=== PATIENT | female | born 1945 | race Caucasian/White ===

== ENCOUNTER 2017-08-10 22:50 | Inpatient (IN) | payer MEDICARE ==
[~2017-08-10] VITALS: Ht 157 cm; Wt 85.8 kg
[~2017-08-10 22:50] MED LIST: ADVA500A INH; ADVAI500I PO; ALBU0.08 NEB; ALBU8I INH; ASPI-516 CHEW; ASPI325T PO; DUONI NEB; E-40CAP; FISH120014; GLUC500T4 PO; GLUCTAB6; HYDR-2768 PO; HYDR25TA5 PO; LOSA50TA PO; LOVA40TA PO; MAGN1TAB14; MAGN500T2 PO; METF500 PO; METF500T PO; MULTCAP2 PO; REME15TA PO; SPIRCAP INH; VENTAER INH; VITA-13 PO; VITATAB11; Vancomycin Consult Pharmacy 1 EA OTHER SCH
[2017-08-10 23:20] VITALS: O2SAT 92
[2017-08-11] VITALS (7 sets, daily range): BP systolic 92–148; BP diastolic 58–79; PULSE 76–93; RESP 18–20; TEMP 96.6–98; O2SAT 90–96
[2017-08-11] MEDS ORDERED: VANCOMYCIN 1,500 MG/NS 500 ML IV ONE ×2 (01:00)
[2017-08-11] MEDS ORDERED: RESP: ALBUTEROL 2.5 MG/IPRATROPIUM 0.5 MG NEB (PRN) NEB (04:15)
[2017-08-11] MEDS ORDERED: DEXTROSE 50% IN WATER 50 ML VIAL(D50) IV PUSH PRN (04:30)
[2017-08-11] MEDS ORDERED: GLUCAGON 1 MG/ML VIAL OTHER PRN (04:30)
[2017-08-11] MEDS ORDERED: METFORMIN HOLD POST IV CONTRAST SCH (04:50)
[2017-08-11] MEDS ORDERED: IOHEXOL 350 MG/ML 10 ML VIAL (for RAD DIAG) IVCONTRAST ONE (05:06)
[2017-08-11] MEDS ORDERED: ALBUTEROL SULFATE 90 MCG/ACT HFA 8 GM INHALER INH PRN (05:30)
--- NOTE | 2017-08-11 05:31 | RADRPT ---
EXAM DATE/TIME: 08/11/2017 04:45 [facility] COMPARISON: No previous studies available for comparison. INDICATIONS : Evaluate for embolism. Elevated d dimer. IV CONTRAST: 75 cc Omnipaque 350 (iohexol) IV RADIATION DOSE: 17.68 CTDIvol (mGy) MEDICAL HISTORY : Hernia, hiatal. Carcinoma, breast. Chronic obstructive pulmonary disease.Hypertension. Diabetic. SURGICAL HISTORY : Cholecystectomy. Mastectomy, bilateral. ENCOUNTER: Initial ACUITY: 1 day PAIN SCALE: 4/10 LOCATION: chest TECHNIQUE: Volumetric scanning of the chest was performed using a pulmonary embolism protocol MIP images were re constructed. Using automated exposure control and adjustment of the mA and/or kV according to patien t size, radiation dose was kept as low as reasonably achievable to obtain optimal diagnostic quality images. DICOM format image data is available electronically for review and comparison. Follow-up recommendations for detected pulmonary nodules are based at a minimum on nodule size and pa tient risk factors according to Fleischner Society Guidelines. FINDINGS: PULMONARY ARTERIES: No filling defects are seen in the pulmonary arteries through the segmental level. LUNGS: Airspace consolidation in the right lung base with associated volume loss. Mild air space consolidati on in the lingula and anterior right middle lobe. Patchy airspace consolidation in the apices bilater ally. PLEURAE: Trace left pleural effusion. Loculated right pleural effusion with indeterminate density. MEDIASTINUM: Heart is grossly unremarkable. There are multiple mediastinal nodes measuring up to 12 mm and slightl y prominent bilateral hilar nodes. Thoracic aorta is grossly unremarkable. MUSCULOSKELETAL: No abnormal lytic or blastic bony lesions. MISCELLANEOUS: The visualized upper abdominal organs demonstrate no acute abnormality. CONCLUSION: 1. No CT evidence for pulmonary artery embolism as questioned. 2. Trace left and small loculated complex right pleural effusion. Associated airspace disease and vol ume loss in the right lung base, presumably compressive atelectasis. 3. Patchy airspace disease in the anterior right middle lobe and lingula which may reflect post radia tion change. 4. Mild patchy biapical airspace consolidation, right greater than left, which may be infectious or i nflammatory in etiology. 5. Nonspecific mild mediastinal and hilar adenopathy. Michel Plata MD on August 11, 2017 at 5:22 Board Certified Radiologist. This report was verified electronically.
[2017-08-11] MEDS ORDERED: methylPREDNISolone SOD SUCC 40 MG/1 ML VIAL IV PUSH SCH (06:00)
[2017-08-11] MEDS: RESP: ALBUTEROL 2.5 MG/IPRATROPIUM 0.5 MG NEB (SCH) NEB ×3 (07:52→21:05)
[2017-08-11] MEDS: INSULIN ASPART SUPPLEMENTAL SCALE SQ SCH ×4 (08:00→20:32)
[2017-08-11 08:38] LABS: AUTOMATED NEUTROPHIL # 15.2 TH/MM3 (1.8-7.7); BASOPHIL % 0.1 % (0.0-2.0); HEMOGLOBIN 11.9 GM/DL (11.6-15.3); LYMPH % 6.4 % (9.0-44.0); LYMPHOCYTE # 1.1 TH/MM3 (1.0-4.8); MEAN CELL VOLUME 86.6 FL (80.0-100.0); MEAN CORPUSCULAR HEMOGLOBIN 28.7 PG (27.0-34.0); MEAN CORPUSCULAR HGB CONC 33.1 % (32.0-36.0); MEAN PLATELET VOLUME 7.3 FL (7.0-11.0); MONOCYTE # 0.2 TH/MM3 (0-0.9); NEUT % 92.5 % (16.0-70.0); PLATELET COUNT 455 TH/MM3 (150-450); RED BLOOD COUNT 4.16 MIL/MM3 (4.00-5.30); RED CELL DISTRIBUTION WIDTH 14.7 % (11.6-17.2); WHITE BLOOD COUNT 16.5 TH/MM3 (4.0-11.0)
[2017-08-11 08:52] LABS: CALCIUM 8.5 MG/DL (8.5-10.1)
[2017-08-11 08:53] LABS: BICARBONATE 28.7 MEQ/L (21.0-32.0)
[2017-08-11 08:56] LABS: CREATININE 0.36 MG/DL (0.50-1.00)
[2017-08-11] MEDS: BUDESONIDE-FORMOTEROL 80/4.5 MCG INHALER INH SCH ×2 (09:19→21:00)
[2017-08-11] MEDS: TIOTROPIUM BROMIDE 18 MCG INH INH SCH (09:19)
[2017-08-11] MEDS: PRAVASTATIN SOD 40 MG TAB PO SCH (09:22)
[2017-08-11] MEDS: MAGNESIUM OXIDE 400 MG TAB PO SCH (09:22)
--- NOTE | 2017-08-11 10:16 | HHI.HP ---
[facility]Staff Admission Diagnosis Diagnoses: Travel History International Travel<30 Days: No Contact w/Intl Traveler <30 Da: No Traveled to Known Affected Are: No History of Present Illness have been short of breath 3 weeks ago, had flu, and was on tamiflu 5 days and on levaquin and prednisone - 10 days started feeling better but by 4th day later, started having fever, lethargic, and went to pcp again about 6 days later, and PCP told her to come to hospital thus she went to [facility] on home oxygen 3L at night time also uses cpap at night sleep apnea had little bit of diarrhea- couple of days - but now resolved for 2 days now diarrhea smells like baby stool had a little bit of chest pain but mostly after coughing a lot, at the bilateral mastectomy site nebulizer treatments helped with this Review of Systems Except as stated in HPI: all other systems reviewed are Neg Past Family Social History Past Medical History htn dm copd on home oxygen sleep apnea on cpap asthma breast cancer- intraductal- bilateral mastectomy, last dose of chemo over a year ago, now on arimidex, last dose radiation more than a year ago Past Surgical History cholecystectomy mediport placement and removal breast biopsy bilateral mastectomy cervical cone biopsy left pinky finger sx Allergies: Coded Allergies: enalapril (Verified Allergy, Severe, Swelling, 08/10/17) thanh (Verified Allergy, Unknown, SWELLING, 08/10/17) oxycodone (Verified Adverse Reaction, Unknown, NIGHTMARES, 08/10/17) Family History bone cancer in mother, father, lung cancer on father side one aunt from lung cancer Social History smokes about a pack and a half to two packs a day still lives with her 25 yo grandson still drives independent with her ADLs no etoh abuse no drugs Physical Exam Vital Signs Vital Signs Date Time Temp Pulse Resp B/P (MAP) Pulse Ox O2 Delivery O2 Flow Rate FiO2 08/11/17 07:54 92 Nasal Cannula 5.00 08/11/17 07:50 96.6 87 20 148/79 (102) 92 08/11/17 00:00 97.8 92 18 92/75 (81) 91 08/10/17 23:38 Nasal Cannula 4.00 08/10/17 23:20 92 Nasal Cannula 4.00 Physical Exam GENERAL: This is a well-nourished, well-developed patient, in no apparent distress. sitting up in chair, pleasant, coughing quite a bit, on 5L NC SKIN: No rashes, ecchymoses or lesions. Cool and dry. HEAD: Atraumatic. Normocephalic. No temporal or scalp tenderness. EYES: No scleral icterus. No injection or drainage. ENT: Nose without bleeding, purulent drainage or septal hematoma. T. Airway patent. NECK: Trachea midline. No JVD or lymphadenopathy. Supple, nontender, no meningeal signs. CARDIOVASCULAR: Regular rate and rhythm without murmurs, gallops, or rubs. RESPIRATORY: bilateral mild expiratory wheezing with decreased entry at bases GASTROINTESTINAL: Abdomen soft, non-tender, nondistended. No No guarding. MUSCULOSKELETAL: Extremities without clubbing, cyanosis, or edema. . No calf tenderness. NEUROLOGICAL: Awake and alert. Motor and sensory grossly within normal limits.Normal speech. Laboratory Laboratory Tests Test 08/10/17 23:30 08/11/17 08:10 D-Dimer Quantitative (PE/DVT) 2.93 White Blood Count 16.5 Red Blood Count 4.16 Hemoglobin 11.9 Hematocrit 36.0 Mean Corpuscular Volume 86.6 Mean Corpuscular Hemoglobin 28.7 Mean Corpuscular Hemoglobin Concent 33.1 Red Cell Distribution Width 14.7 Platelet Count 455 Mean Platelet Volume 7.3 Neutrophils (%) (Auto) 92.5 Lymphocytes (%) (Auto) 6.4 Monocytes (%) (Auto) 1.0 Eosinophils (%) (Auto) 0.0 Basophils (%) (Auto) 0.1 Neutrophils # (Auto) 15.2 Lymphocytes # (Auto) 1.1 Monocytes # (Auto) 0.2 Eosinophils # (Auto) 0.0 Basophils # (Auto) 0.0 CBC Comment DIFF FINAL Differential Comment Blood Urea Nitrogen 13 Creatinine 0.36 Random Glucose 133 Calcium Level 8.5 Sodium Level 138 Potassium Level 4.4 Chloride Level 101 Carbon Dioxide Level 28.7 Anion Gap 8 Estimat Glomerular Filtration Rate 177 Result Diagram: 08/11/17 0810 08/11/17 0810 Imaging Last [address] Angiography 08/11/17 0000 Signed Impressions: Service Date/Time: Friday, August 11, 2017 04:45 - CONCLUSION: 1. No CT evidence for pulmonary artery embolism as questioned. 2. Trace left and small loculated complex right pleural effusion. Associated airspace disease and volume loss in the right lung base, presumably compressive atelectasis. 3. Patchy airspace disease in the anterior right middle lobe and lingula which may reflect post radiation change. 4. Mild patchy biapical airspace consolidation, right greater than left, which may be infectious or inflammatory in etiology. 5. Nonspecific mild mediastinal and hilar adenopathy. MD Tony Johnson VTE Risk Assessment Caprini VTE Risk Assessment: Mod/High Risk (score >= 2) Caprini Risk Assessment Model Point Value = 1 Point Value = 2 Point Value = 3 Point Value = 5 Age 41-60 Minor surgery BMI > 25 kg/m2 Swollen legs Varicose veins or History of unexplained or recurrent spontaneous Oral contraceptives or hormone replacement Sepsis (< 1 month) Serious lung disease, including pneumonia (< 1 month) Abnormal pulmonary function Acute myocardial infarction Congestive heart failure (< 1 month) History of inflammatory bowel disease Medical patient at bed rest Age 61-74 Arthroscopic surgery Major open surgery (> 45 min) Laparoscopic surgery (> 45 min) Malignancy Confined to bed (> 72 hours) Immobilizing plaster cast Central venous access Age >= 75 History of VTE Family history of VTE Factor V Leiden Prothrombin [id number] Lupus anticoagulant Anticardiolipin antibodies Elevated serum homocysteine Heparin-induced thrombocytopenia Other congenital or acquired thrombophilia Stroke (< 1 month) Elective arthroplasty Hip, pelvis, or leg fracture Acute spinal cord injury (< 1 month) Prophylaxis Regimen Total Risk Factor Score Risk Level Prophylaxis Regimen 0-1 Low Early ambulation 2 Moderate Order ONE of the following: *Sequential Compression Device (SCD) *Heparin 5000 units SQ BID 3-4 Higher Order ONE of the following medications: *Heparin 5000 units SQ TID *Enoxaparin/Lovenox 40 mg SQ daily (WT < 150 kg, CrCl > 30 mL/min) *Enoxaparin/Lovenox 30 mg SQ daily (WT < 150 kg, CrCl > 10-29 mL/min) *Enoxaparin/Lovenox 30 mg SQ BID (WT < 150 kg, CrCl > 30 mL/min) AND/OR *Sequential Compression Device (SCD) 5 or more Highest Order ONE of the following medications: *Heparin 5000 units SQ TID (Preferred with Epidurals) *Enoxaparin/Lovenox 40 mg SQ daily (WT < 150 kg, CrCl > 30 mL/min) *Enoxaparin/Lovenox 30 mg SQ daily (WT < 150 kg, CrCl > 10-29 mL/min) *Enoxaparin/Lovenox 30 mg SQ BID (WT < 150 kg, CrCl > 30 mL/min) AND *Sequential Compression Device (SCD) Assessment and Plan Assessment and Plan pneumonia- failed outpatient therapy loculated r pleural effusion increased o2 requirement fever leukoctyosis secondary to steroid use and fever vanco per crcl and levels zosyn pseudomonas coverage will follow cx pt inr now thoracocentesis today Dr Lopez consult - pt's pulmonary nebs prn steroid d/c as pt completed course and is not so much in distress from bronchoconstriction dvt prophylaxis with lovenox gi prophylaxis on pantoprazole Physician Certification Order for Inpatient Services The services are ordered in accordance with Medicare regulations or non- Medicare payer requirements, as applicable. In the case of services not specified as inpatient-only, they are appropriately provided as inpatient services in accordance with the 2-midnight benchmark. days is the estimated time the patient will need to remain in the hospital, assuming treatment plan goals are met and no additional complications. Nacho Garcia MD Aug 11, 2017 10:16
[2017-08-11] MEDS ORDERED: NICOTINE 14 MG/24 HR PATCH T-DERMAL ONE (10:45)
[2017-08-11 11:05] LABS: INTERNATIONAL NORMALIZED RATIO 1.1 RATIO; PROTHROMBIN TIME - PATIENT 10.7 SEC (9.8-11.6)
[2017-08-11] MEDS: PIPERACIL-TAZO 4.5 GM PREMIX 100 ML IV SCH ×3 (11:44→23:52)
[2017-08-11] MEDS ORDERED: cefTRIAXone INJ 1,000 MG in SODIUM CHLORIDE 0.9% INJ 100 ML IV SCH (18:00)
[2017-08-11] MEDS: MIRTAZAPINE 15 MG TAB PO SCH (22:42)
[2017-08-12] VITALS (8 sets, daily range): BP systolic 133–153; BP diastolic 63–70; PULSE 65–84; RESP 20; TEMP 96.1–97.6; O2SAT 90–96
[2017-08-12] MEDS ORDERED: VANCOMYCIN 1,500 MG/NS 500 ML IV SCH ×2 (01:00)
[2017-08-12] MEDS: PIPERACIL-TAZO 4.5 GM PREMIX 100 ML IV SCH ×2 (06:08→12:43)
[2017-08-12] MEDS: RESP: ALBUTEROL 2.5 MG/IPRATROPIUM 0.5 MG NEB (SCH) NEB ×3 (07:33→20:09)
--- NOTE | 2017-08-12 08:53 | RADRPT ---
EXAM DATE/TIME: 08/12/2017 08:38 [facility] COMPARISON: CHEST SINGLE AP, August 10, 2017, 16:44. INDICATIONS : Post right thoracentesis. MEDICAL HISTORY : Hernia, hiatal. Carcinoma, breast. Chronic obstructive pulmonary disease.Hypertension. Diabetic. SURGICAL HISTORY : Cholecystectomy. Mastectomy, bilateral. ENCOUNTER: Initial ACUITY: 2 days PAIN SCORE: 0/10 LOCATION: Right chest FINDINGS: A single frontal expiratory view of the chest was performed. The lungs are symmetrically aerated. Wi despread diffuse pulmonary vascular and interstitial prominence No evidence of pneumothorax. Medias tinal structures are in the midline. The cardio-mediastinal contours and bronchopulmonary markings are unremarkable for an expiratory exam . Osseous structures are intact. CONCLUSION: No pneumothorax seen. Diffuse interstitial prominence throughout the lungs are unchanged. Terell Gusman MD on August 12, 2017 at 8:51 Board Certified Radiologist. This report was verified electronically.
[2017-08-12] MEDS ORDERED: ENOXAPARIN SODIUM 40 MG/0.4 ML SYRINGE SQ SCH (09:00)
--- NOTE | 2017-08-12 09:06 | HHI.PR ---
Subjective Remarks Patient seen and examined today for follow-up on COPD, pleural effusion. Patient just got back from having 250 cc drained from her lung. She states that she has minimal improvement with her respiratory status. She states that she is very hungry and cannot wait to get some food in her stomach. Patient is on oxygen 3 L nasal cannula at home, does appear to have obstructive sleep apnea with CPAP at bedside. Patient appears to be responding to treatment nicely. Awaiting results from thoracentesis for further recommendations. Objective Vitals Vital Signs Date Time Temp Pulse Resp B/P (MAP) Pulse Ox O2 Delivery O2 Flow Rate FiO2 08/12/17 07:50 65 20 134/70 (91) 94 08/12/17 00:00 96.4 84 20 133/69 (90) 96 08/11/17 21:05 96 Nasal Cannula 5.00 08/11/17 20:00 98.0 85 20 122/58 (79) 95 08/11/17 19:00 Nasal Cannula 4.00 08/11/17 15:50 96.8 93 20 145/65 (91) 94 08/11/17 11:50 97.4 76 20 137/65 (89) 90 I/O 08/11/17 08/11/17 08/11/17 08/12/17 08/12/17 08/12/17 07:00 15:00 23:00 07:00 15:00 23:00 Intake Total 835 ml 100 ml 441 ml 1020 ml Output Total 1 ml Balance 834 ml 100 ml 441 ml 1020 ml Intake Oral 320 ml 341 ml 420 ml IV Total 515 ml 100 ml 100 ml 600 ml Output Urine Total 1 ml # Voids 6 3 # Bowel Movements 0 0 1 Result Diagram: 08/11/17 0810 08/11/17 0810 Objective Remarks GENERAL: Well-developed, well-nourished, in no acute distress. alert and orientated HEENT: Head is normocephalic without any lesions or masses noted. Facial features are symmetric. Eyes: Extraocular muscles are intact. Conjunctivae were clear. NECK: Supple without any masses. Trachea midline no deviation. No JVD, CARDIAC: Regular rhythm, regular rate. S1/S2 are heard. No murmurs gallops or rubs. LUNGS: Diminished breath sounds noted throughout no wheeze, rhonchi or rales. No use of accessory muscles on inspiration or expiration. ABDOMEN: Soft, nontender. Nondistended. Bowel sounds heard in all 4 quadrants. No organomegaly or masses. Negative rebound, negative guarding EXTREMITIES: No edema, pulses are equal bilaterally. No cyanosis or clubbing NEUROLOGY: Mood and affect appear appropriate. Cranial nerves II through XII grossly intact. Moving all extremities, speech is clear Urinary Catheter: No Vascular Central Line Catheter: No A/P Assessment and Plan Acute on chronic respiratory failure likely secondary to chronic obstructive pulmonary disease exacerbation, pneumonia Continue O2 supplementation maintain O2 sats greater than 92% Duo nebs every 6 hours and every 2 hours as needed Patient is on vancomycin and Zosyn, given that the loculated effusion is not exudative will change antibiotics Start Levaquin [employer] Teacher has been consulted Loculated pleural effusion Status post ultrasound-guided thoracentesis with removal of 250 cc of cloudy red fluid Fluid testing appears to be transudative Continue to follow cultures Leukocytosis, secondary to recent steroid use No findings indicative of sepsis Follow CBC Diabetes Accu-Cheks with sliding scale insulin Hypertension, hyperlipidemia Home medications have been continued DVT prevention Sequential compression devices Subcutaneous Lovenox Discharge Planning Discharge planning, anticipate discharge in 24-48 hours depending on response to treatment David Cruz Aug 12, 2017 09:06
--- NOTE | 2017-08-12 09:11 | RADRPT ---
EXAM DATE/TIME: 08/11/2017 11:18 [facility] COMPARISON: No previous studies available for comparison. INDICATIONS : Right pleural effusion. MEDICAL HISTORY : Hypercholesterolemia. Hypertension. Chronic obstructive pulmonary disease. Sleep apnea. Asthma. Hiata l hernia. Arthritis. Diabetes. Breast cancer. SURGICAL HISTORY : Cholecystectomy Mastectomy, bilateral. ENCOUNTER: Initial ACUITY: 2 days PAIN SCORE: 3/10 LOCATION: Right chest FLUID: Total volume of 250 cc of cloudy, red fluid was removed. Fluid was sent to lab for ordered studies. TECHNIQUE: 1. Ultrasound guidance for thoracentesis. 2. Thoracentesis. The risks, benefits, and alternatives to ultrasound guided thoracentesis were explained to the patien t in lay simple terms, including the risk of bleeding and infection. Written and verbal informed con sent was obtained. Appropriate area for thoracentesis was marked under ultrasound guidance with the patient in the uprig ht position. Overlying skin was prepped and draped in the usual sterile fashion and with local anest hetic, a dermatotomy was made with an 11 blade scalpel. A 6 Greenlandic thoracentesis catheter was placed in the pleural space and fluid was removed. Catheter was then removed and a sterile dressing applie d. There were no immediate complications. The patient tolerated the procedure well and the left the ultrasound suite in stable condition. Chest radiograph is to be obtained. CONCLUSION: Uncomplicated ultrasound guided thoracentesis. Eldon Cordoba MD on August 12, 2017 at 9:10 Board Certified Radiologist. This report was verified electronically.
[2017-08-12] MEDS: INSULIN ASPART SUPPLEMENTAL SCALE SQ SCH ×4 (09:39→20:18)
[2017-08-12] MEDS: BUDESONIDE-FORMOTEROL 80/4.5 MCG INHALER INH SCH ×2 (09:40→22:09)
[2017-08-12] MEDS: TIOTROPIUM BROMIDE 18 MCG INH INH SCH (09:40)
[2017-08-12] MEDS: MAGNESIUM OXIDE 400 MG TAB PO SCH (09:41)
[2017-08-12] MEDS: PRAVASTATIN SOD 40 MG TAB PO SCH (09:41)
[2017-08-12] MEDS: NICOTINE 14 MG/24 HR PATCH T-DERMAL SCH (09:43)
[2017-08-12] MEDS: REMOVE OLD PATCH T-DERMAL SCH (09:43)
[2017-08-12 10:51] LABS: PLEURAL FLUID EOS 8 %; PLEURAL FLUID LYMPHS 10 %; PLEURAL FLUID MESOTHELIAL 8 %; PLEURAL FLUID MONOS 9 %; PLEURAL FLUID POLYS (SEGS) 65 %; PLEURAL FLUID RBC 2600 /MM3 (0-0); PLEURAL FLUID WBC 1600 /MM3 (0-10)
[2017-08-12 11:17] LABS: TOTAL PROTEIN,PLEURAL FLUID 2.8 GM/DL
--- NOTE | 2017-08-12 17:36 | MB ---
cc: Dyana Serrano MD, R. Steven 0 MD DATE OF CONSULT: 08/12/2017 HISTORY OF PRESENT ILLNESS: Ms. Hodges is a 71 year-old white female with a known history of chronic obstructive pulmonary disease. She continues to smoke regularly on a daily basis and is on home oxygen and bronchodilators. She had the flu several weeks ago followed by bronchitis. She had been treated with antibiotics, but her condition was not improving. She was more short of breath so she presented to the emergency room. On presentation, CT scan was performed which revealed right lower lobe infiltrate, right pleural effusion probably loculated, a little airspace disease on the left with a small left effusion and nonspecific mediastinal adenopathy. She was admitted, started on antibiotics and underwent a diagnostic thoracentesis in radiology. Gram stain of that fluid was negative with no organisms identified and cultures are pending. White count was 16,000, hemoglobin 11.9. Pleural fluid revealed 1600 white cells, predominantly neutrophils, total protein of 2.8 with an LDH of 105, exudative by criteria. Cytology is pending. She was started on antibiotics and bronchodilators. She is feeling better than on admission. PAST MEDICAL HISTORY: Hypertension, diabetes, sleep apnea on CPAP at night, history of breast cancer, bilateral mastectomies, chemotherapy and radiation and is now on Arimidex and prior cholecystectomy. ALLERGIES: ENALAPRIL, LIMA, OXYCODONE. FAMILY HISTORY: Positive for cancer of the lung. SOCIAL HISTORY: She continues to smoke. No excessive alcohol use. Lives with her grandson, otherwise, independent. MEDICATIONS Reviewed in the electronic medical record. REVIEW OF SYSTEMS: No chest pain or hemoptysis. She was not aware of fever. She has had no increased swelling in her legs. A little diarrhea several days ago has resolved. No nausea or vomiting. PHYSICAL EXAMINATION: BLOOD PRESSURE: 97, 150/60, pulse 80, respiration 18, 3 liters O2 sat 94%. HEENT: Sclerae anicteric. Mucous membranes moist. NECK: Veins are not distended. CHEST: Some minimal scattered congestion with faint wheezing. No rhonchi. Regular rhythm. No harsh murmur. ABDOMEN: Soft. No peripheral edema or cyanosis. DISCUSSION: Ms. Hodges presents with a history of chronic obstructive pulmonary disease oxygen dependent, also with SHERRY on CPAP. She is continuing to smoke unfortunately and now has a right lower lobe infiltrate/effusion probably infectious with pneumonia. We will see if the culture of the pleural fluid is negative. She has responded to current antibiotic therapy. We will continue that and also her aerosolized bronchodilators and oxygen. At this point, she is improving. I do not see any indication to add steroids to this regimen. Further diagnostic and/or therapeutic intervention will depend on her continued clinical course and response to therapy. R. Matheus Serrano MD RSW/SA/ , 04:36 PM , 05:20 PM
[2017-08-12] MEDS: MIRTAZAPINE 15 MG TAB PO SCH (20:17)
[2017-08-13] VITALS: BP 143/64; PULSE 79; RESP 20; TEMP 97.5; O2SAT 95
[2017-08-13 06:46] LABS: AUTOMATED NEUTROPHIL # 9.5 TH/MM3 (1.8-7.7); BASOPHIL % 0.1 % (0.0-2.0); EOSINOPHIL # 0.3 TH/MM3 (0-0.4); EOSINOPHIL % 2.7 % (0.0-4.0); HEMOGLOBIN 10.7 GM/DL (11.6-15.3); LYMPH % 13.4 % (9.0-44.0); LYMPHOCYTE # 1.6 TH/MM3 (1.0-4.8); MEAN CELL VOLUME 88.5 FL (80.0-100.0); MEAN CORPUSCULAR HEMOGLOBIN 28.7 PG (27.0-34.0); MEAN CORPUSCULAR HGB CONC 32.5 % (32.0-36.0); MONO % 6.4 % (0.0-8.0); MONOCYTE # 0.8 TH/MM3 (0-0.9); NEUT % 77.4 % (16.0-70.0); PLATELET COUNT 496 TH/MM3 (150-450); RED BLOOD COUNT 3.72 MIL/MM3 (4.00-5.30); RED CELL DISTRIBUTION WIDTH 13.9 % (11.6-17.2); WHITE BLOOD COUNT 12.2 TH/MM3 (4.0-11.0)
[2017-08-13 06:56] LABS: CALCIUM 8.7 MG/DL (8.5-10.1)
[2017-08-13 06:57] LABS: BICARBONATE 31.9 MEQ/L (21.0-32.0)
[2017-08-13 07:00] LABS: CREATININE 0.4 MG/DL (0.50-1.00)
[2017-08-13] MEDS: RESP: ALBUTEROL 2.5 MG/IPRATROPIUM 0.5 MG NEB (SCH) NEB ×2 (07:40→13:30)
[2017-08-13 07:50] VITALS: O2SAT 96
[2017-08-13 08:00] VITALS: BP 168/71; PULSE 80; RESP 14; TEMP 98.2; O2SAT 90
[2017-08-13] MEDS: INSULIN ASPART SUPPLEMENTAL SCALE SQ SCH ×2 (08:00→12:09)
[2017-08-13] MEDS: TIOTROPIUM BROMIDE 18 MCG INH INH SCH (08:27)
[2017-08-13] MEDS: REMOVE OLD PATCH T-DERMAL SCH (08:28)
[2017-08-13] MEDS: BUDESONIDE-FORMOTEROL 80/4.5 MCG INHALER INH SCH (08:28)
[2017-08-13] MEDS: MAGNESIUM OXIDE 400 MG TAB PO SCH (08:29)
[2017-08-13] MEDS: PRAVASTATIN SOD 40 MG TAB PO SCH (08:29)
[2017-08-13] MEDS: NICOTINE 14 MG/24 HR PATCH T-DERMAL SCH (08:31)
[2017-08-13] MEDS ORDERED: LEVOFLOXACIN 750 MG TAB PO SCH (09:00)
--- NOTE | 2017-08-13 09:21 | RADRPT ---
EXAM DATE/TIME: 08/13/2017 09:08 [facility] COMPARISON: CT PULMONARY ANGIOGRAM, August 11, 2017, 4:45. INDICATIONS : Pleural effusion pneumonia. MEDICAL HISTORY : Hernia, hiatal. Carcinoma, breast. Chronic obstructive pulmonary disease.Hypertension. Diabetic. SURGICAL HISTORY : Cholecystectomy. Mastectomy, bilateral. ENCOUNTER: Subsequent ACUITY: 3 days PAIN SCORE: 0/10 LOCATION: Right chest FINDINGS: Lungs are hyperinflated with trace pleural effusions. Scattered patchy areas of airspace disease are evident.. There is no pneumothorax. Mild Powell cardiomegaly. CONCLUSION: Hyperinflation minimal airspace disease and no significant pleural effusion. Matheus Shields MD FACR on August 13, 2017 at 9:19 Board Certified Radiologist. This report was verified electronically.
[2017-08-13] MEDS ORDERED: LEVA750T9 PO (10:54)
--- NOTE | 2017-08-13 10:55 | HHI.DCPOC ---
Discharge Care Plan Diagnosis: (1) COPD (chronic obstructive pulmonary disease) (2) Pleural effusion Goals to Promote Your Health * To prevent worsening of your condition and complications * To maintain your health at the optimal level Directions to Meet Your Goals Take your medications as prescribed Follow your dietary instruction Follow activity as directed Keep your appointments as scheduled Take your immunizations and boosters as scheduled If your symptoms worsen call your PCP, if no PCP go to Urgent Care Center or Emergency Room Smoking is Dangerous to Your Health. Avoid second hand smoke Call the 24-hour hour crisis hotline for domestic abuse at David Cruz Aug 13, 2017 10:55
--- NOTE | 2017-08-13 10:56 | HHI.DS ---
Discharge Summary Admission Date Aug 10, 2017 at 22:51 Discharge Date: Aug 13, 2017 Admitting Diagnosis Shortness of breath, dyspnea (1) Pleural effusion ICD Code: J90 - Pleural effusion, not elsewhere classified (2) COPD (chronic obstructive pulmonary disease) ICD Code: J44.9 - Chronic obstructive pulmonary disease, unspecified (3) Pneumonia ICD Code: J18.9 - Pneumonia, unspecified organism (4) Acute and chronic respiratory failure with hypoxia ICD Code: J96.21 - Acute and chronic respiratory failure with hypoxia Procedures Thoracentesis with removal of 250 cc of fluid Brief History - From Admission have been short of breath 3 weeks ago, had flu, and was on tamiflu 5 days and on levaquin and prednisone - 10 days started feeling better but by 4th day later, started having fever, lethargic, and went to pcp again about 6 days later, and PCP told her to come to hospital thus she went to [facility] on home oxygen 3L at night time also uses cpap at night sleep apnea had little bit of diarrhea- couple of days - but now resolved for 2 days now diarrhea smells like baby stool had a little bit of chest pain but mostly after coughing a lot, at the bilateral mastectomy site nebulizer treatments helped with this CBC/BMP: 08/13/17 0525 08/13/17 0525 Significant Findings Laboratory Tests Test 08/10/17 23:30 08/11/17 08:10 08/11/17 10:30 08/12/17 08:30 D-Dimer Quantitative (PE/DVT) 2.93 MG/L FEU (0.00-0.50) White Blood Count 16.5 TH/MM3 (4.0-11.0) Platelet Count 455 TH/MM3 (150-450) Neutrophils (%) (Auto) 92.5 % (16.0-70.0) Lymphocytes (%) (Auto) 6.4 % (9.0-44.0) Neutrophils # (Auto) 15.2 TH/MM3 (1.8-7.7) Creatinine 0.36 MG/DL (0.50-1.00) Random Glucose 133 MG/DL (74-106) Pleural Fluid WBC 1600 /MM3 (0-10) Pleural Fluid RBC 2600 /MM3 (0-0) Test 08/13/17 05:25 White Blood Count 12.2 TH/MM3 (4.0-11.0) Red Blood Count 3.72 MIL/MM3 (4.00-5.30) Hemoglobin 10.7 GM/DL (11.6-15.3) Hematocrit 33.0 % (35.0-46.0) Platelet Count 496 TH/MM3 (150-450) Neutrophils (%) (Auto) 77.4 % (16.0-70.0) Neutrophils # (Auto) 9.5 TH/MM3 (1.8-7.7) Blood Urea Nitrogen 20 MG/DL (7-18) Creatinine 0.40 MG/DL (0.50-1.00) Imaging Last Impressions Chest X-Ray 08/13/17 0600 Signed Impressions: Service Date/Time: Sunday, August 13, 2017 09:08 - CONCLUSION: Hyperinflation minimal airspace disease and no significant pleural effusion. Matheus Shields MD FACR Thoracentesis Ultrasound 08/12/17 0000 Signed Impressions: Service Date/Time: Friday, August 11, 2017 11:18 - CONCLUSION: Uncomplicated ultrasound guided thoracentesis. Eldon Cordoba MD CT Angiography 08/11/17 0000 Signed Impressions: Service Date/Time: Friday, August 11, 2017 04:45 - CONCLUSION: 1. No CT evidence for pulmonary artery embolism as questioned. 2. Trace left and small loculated complex right pleural effusion. Associated airspace disease and volume loss in the right lung base, presumably compressive atelectasis. 3. Patchy airspace disease in the anterior right middle lobe and lingula which may reflect post radiation change. 4. Mild patchy biapical airspace consolidation, right greater than left, which may be infectious or inflammatory in etiology. 5. Nonspecific mild mediastinal and hilar adenopathy. Michel Plata MD PE at Discharge GENERAL: Well-developed, well-nourished, in no acute distress. alert and orientated HEENT: Head is normocephalic without any lesions or masses noted. Facial features are symmetric. Eyes: Extraocular muscles are intact. Conjunctivae were clear. NECK: Supple without any masses. Trachea midline no deviation. No JVD, CARDIAC: Regular rhythm, regular rate. S1/S2 are heard. No murmurs gallops or rubs. LUNGS: Diminished breath sounds noted throughout no wheeze, rhonchi or rales. No use of accessory muscles on inspiration or expiration. ABDOMEN: Soft, nontender. Nondistended. Bowel sounds heard in all 4 quadrants. No organomegaly or masses. Negative rebound, negative guarding EXTREMITIES: No edema, pulses are equal bilaterally. No cyanosis or clubbing NEUROLOGY: Mood and affect appear appropriate. Cranial nerves II through XII grossly intact. Moving all extremities, speech is clear Hospital Course Is a 71-year-old female with known history of chronic respiratory failure, chronic obstructive pulmonary disease, diabetes, hypertension, hypokalemia who originally presented to hospital because for 5 days she was experiencing wheezing, cough, fever, difficulty breathing. Patient had workup done emergency department found to have acute respiratory failure with O2 saturations 70%. CT scan was done which did show loculated complex right pleural effusion, airspace disease with volume loss of the right lung base. Patchy airspace disease in the anterior right middle lobe and lingula. Patient was admitted for further evaluation management. She did undergo thoracentesis with removal of 250 cc of yellow cloudy fluid. Studies were performed which did indicate transudative fluid. Gram stain did not indicate any organisms. Thus far there is been no growth on culture. Patient was continued on O2 supplementation. Patient was using own CPAP for obstructive sleep apnea. Patient was started on broad-spectrum antibiotics include vancomycin and Zosyn. Once pleural fluid was unremarkable. Patient was switched to Levaquin by mouth. Steroids were deferred secondary to patient recent completion of a steroid dose. Medical Social Consultant was consulted for recommendations. Medical Social Consultant agreed with care there has been given. And presently the patient is significantly improved. She is on baseline oxygen supplementation. 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 Patient is doing quite well. She is very eager to go home. Will plan discharge accordingly. Pt Condition on Discharge: Stable Discharge Disposition: Discharge Home Discharge Time: > 30 minutes Discharge Instructions DIET: Follow Instructions for: As Tolerated, No Restrictions Activities you can perform: Regular-No Restrictions Follow up Referrals: PCP Follow-up - 1 Week Pulmonology - 2 Weeks with Rodríguez Lopez MD New Medications: Levofloxacin (Levaquin) 750 Mg Tablet 750 MG PO DAILY for Infection for 7 Days, #7 TAB Continued Medications: Albuterol 18 GM Inh (Ventolin Hfa 18 GM Inh) 90 Mcg/Act Aer 2 PUFF INH Q6H PRN for SHORTNESS OF BREATH, #1 INHALER 0 Refills Albuterol Neb (Albuterol Neb) 2.5 Mg/3 Ml Neb 2.5 MG NEB Q4HR NEB for Breathing Treatment, #60 NEBULE 0 Refills While awake Aspirin (Aspirin) 81 Mg Chew 81 MG CHEW DAILY, TAB 0 Refills Fluticasone-Salmeterol Inh (Advair Diskus Inh) 500-50 Mcg/Blist Aer 1 PUFF INH BID, #1 INHALER 0 Refills Rinse mouth after use. Glucosamine-Chondroitin (Glucosamine-Chondroitin) 500-400 Mg Tab 1 TAB PO TID for Herbal Supplements, TAB 0 Refills Hydrochlorothiazide (Hydrochlorothiazide) 25 Mg Tab 25 MG PO DAILY, #30 TAB 0 Refills Losartan (Losartan) 50 Mg Tab 50 MG PO DAILY for Blood Pressure Management, #30 TAB 0 Refills Lovastatin (Lovastatin) 40 Mg Tab 40 MG PO DAILY for Cholesterol Management, #30 TAB 0 Refills Magnesium Oxide (Magnesium Oxide) 500 Mg Tab 500 MG PO DAILY, TAB 0 Refills Metformin (Metformin) 500 Mg Tab 500 MG PO BIDPC for Blood Sugar Management, #60 TAB 0 Refills Mirtazapine (Remeron) 15 Mg Tab 15 MG PO HS for Depression Control, #30 TAB 0 Refills Tiotropium Inh (Spiriva Handihaler) 18 Mcg Cap 18 MCG INH DAILY for COPD, #30 CAP 0 Refills 1 capsule = 18 mcg David Cruz Aug 13, 2017 10:56
[2017-08-13 12:00] VITALS: BP 159/70; PULSE 90; RESP 14; TEMP 97; O2SAT 90
[2017-08-13 12:22] LABS: AMYLASE BODY FLUID 28 U/L; AMYLASE BODY FLUID TYPE PLEURAL
[2017-08-14] MEDS ORDERED: PHARMACY ORDERED LAB ONE (00:45)
== END 2017-08-13 16:35 | disposition home or self-care (01) | DRG 193 ==
LOC: PHEDDLT 22:50 → UNDOADMIN 22:51 → PHEDA 22:51 → PH3A 22:51
PROVIDERS: ADMIT Hospitalist; ATTEND Hospitalist
PROC: 0W993ZZ Drainage of Right Pleural Cavity, Percutaneous Approach (ICD-10-PCS; principal; 2017-08-12)
DX: J18.9 Pneumonia, unspecified organism (principal); J96.21 Acute and chronic respiratory failure with hypoxia; J90 Pleural effusion, not elsewhere classified; Z99.81 Dependence on supplemental oxygen; J44.0 Chronic obstructive pulmonary disease with (acute) lower respiratory infection; E11.9 Type 2 diabetes mellitus without complications; D72.828 Other elevated white blood cell count; J44.1 Chronic obstructive pulmonary disease with (acute) exacerbation; I10 Essential (primary) hypertension; T38.0X5A Adverse effect of glucocorticoids and synthetic analogues, initial encounter; G47.33 Obstructive sleep apnea (adult) (pediatric); E78.5 Hyperlipidemia, unspecified; F17.210 Nicotine dependence, cigarettes, uncomplicated; Z79.84 Long term (current) use of oral hypoglycemic drugs; Z85.3 Personal history of malignant neoplasm of breast; Z88.5 Allergy status to narcotic agent; Z90.13 Acquired absence of bilateral breasts and nipples; Z92.21 Personal history of antineoplastic chemotherapy; Z92.3 Personal history of irradiation
CPT/HCPCS: 32555; 71045; 71046; 71275; 80048; 82150; 82945; 82948; 83615; 83735; 83986; 84157; 85025; 85379; 85610; 85730; 87015; 87070; 87102; 87116; 87205; 87206; 88112; 88305; 89051; 94640; 94664; C1729; J1815; J2543; J2920; J3370; J7040; Q9967